=== PATIENT | male | born 1990 | race Caucasian/White ===

== ENCOUNTER → 2017-10-06 07:31 | Outpatient (CLI) | payer BC, SELFPAY ==
[2017-10-06 09:24] LABS: Basophils % 0.5 % (0.1-2.0); Eosinophils # 0.1 K/mm3 (0.0-0.4); Eosinophils % 1.8 % (0.1-12.0); Hematocrit 49.4 % (42.0-52.0); Hemoglobin 17.8 g/dL (14.1-18.0); Lymphocytes # 1.3 K/mm3 (0.7-4.5); Lymphocytes % 24.8 K/mm3 (10-50); Mean Corpuscular Hemoglobin 31.9 pg (27.0-31.2); Mean Corpuscular Volume 88.7 fl (80-94); Mean Platelet Volume 7.6 fl (7.4-10.4); Monocytes # 0.4 K/mm3 (0.1-1.0); Monocytes % 6.7 % (1.7-9.3); Neutrophils # 3.5 K/mm3 (1.8-7.8); Neutrophils % 66.3 % (37.0-80.0); Platelet Count 195 K/mm3 (142-424); Red Blood Count 5.58 M/mm3 (4.60-6.20); Red Cell Distribution Width 12.4 % (11.5-17.5); White Blood Count 5.3 K/mm3 (4.8-10.8)
[2017-10-06 09:35] LABS: Alanine Aminotransferase 32 U/L (12-78); Albumin Level 4.7 gm/dL (3.4-5.0); Albumin/Globulin Ratio 1.6 (1.1-1.8); Alkaline Phosphatase 66 U/L (46-116); Anion Gap 11.2 mEq/L (5-15); Aspartate Amino Transferase 20 U/L (15-37); Bilirubin,Total 0.4 mg/dL (0.2-1.0); Blood Urea Nitrogen 17 mg/dL (7-18); Carbon Dioxide 29 mmol/L (21.0-32.0); Chloride 109 mmol/L (98-107); Chol/HDL Ratio 4.1 (1-3.5); Cholesterol 191 mg/dL (140-200); Creatinine,Serum 1.24 mg/dL (0.70-1.30); Estimated Glomerular Filt Rate 69 ml/min (>60); GFR (African American) 83 ML/MIN (>60); Glucose 98 mg/dL (74-106); HDL Cholesterol 47 mg/dL (27-67); LDL Cholesterol 120 mg/dL (0-130); Potassium 4.2 mmoL/L (3.5-5.1); Sodium 145 mmol/L (136-145); Total Protein,Serum 7.7 gm/dL (6.4-8.2); Triglycerides 119 mg/dL (30-200); VLDL Cholesterol 24 mg/dL (0-40)
[2017-10-07 19:04] LABS: HIV Screen 4th Generation wRfx Non Reactive (Non Reactive); Hepatitis C Antibody <0.1 s/co ratio (0.0-0.9)
== END ==
PROVIDERS: PCP Family Medicine; Visit Provider Family Medicine
DX: Z00.00 Encounter for general adult medical examination without abnormal findings (principal)
CPT/HCPCS: 36415; 80053; 80061; 85025; 86703; 87380; G0432

== ENCOUNTER → 2017-10-26 14:13 | Outpatient (CLI) | payer BC, SELFPAY | PROVIDERS: PCP Family Medicine; Visit Provider Family Medicine | DX: I10 Essential (primary) hypertension (principal) | CPT/HCPCS: 93005 ==

== ENCOUNTER → 2017-11-30 14:39 | Outpatient (CLI) | payer BC, SELFPAY ==
--- NOTE | 2017-11-30 14:44 | US_ITS ---
US kidney retroperitoneal comp HISTORY: ITS.REASON: HTN, family history of POLYCYSTIC KIDNEY DISEASE ORDERING PHYSICIAN: Noble Avendaño MD PATIENT AGE: 27 years Comparison: None FINDINGS: RIGHT KIDNEY:Unremarkable. Normal size and echogenicity. No hydronephrosis. Right kidney measures 9 x 4 x 5 cm LEFT KIDNEY:Unremarkable. No hydronephrosis. Normal size and echogenicity. The left kidney measures 10 x 6 x 6 cm OTHER FINDINGS: No other pertinent findings IMPRESSION: Normal bilateral renal ultrasound
== END ==
PROVIDERS: PCP Family Medicine; Visit Provider Family Medicine
DX: I10 Essential (primary) hypertension (principal); Z82.71 Family history of polycystic kidney
CPT/HCPCS: 76770